=== PATIENT | male | born 1945 | race Hispanic/Latino ===

== ENCOUNTER 2020-05-14 13:28 | Inpatient (IN) | payer MEDICARE ==
[~2020-05-14] VITALS: Ht 170.2 cm; Wt 77.1 kg
[2020-05-14 14:10] LABS: BASOPHILS # (AUTO) 0.1 (0.0-0.1); BASOPHILS % 1.3 % (0.0-1.0); EOSINOPHILS # (AUTO) 0.5 (0.0-0.4); EOSINOPHILS % 8.7 % (0.0-6.0); HEMATOCRIT 33.5 % (38.2-49.6); HEMOGLOBIN 11.3 g/dL (14.0-18.0); LYMPHOCYTES # (AUTO) 0.7 (1.0-3.2); MEAN CORPUSCULAR HGB CONC 33.7 g/dL (31-35); MEAN CORPUSCULAR VOLUME 100.9 fL (81-99); MONOCYTES # (AUTO) 0.7 (0.2-0.8); MONOCYTES % 11.1 % (4.4-11.3); NEUTROPHILS # (AUTO) 4.1 (2.1-6.9); NEUTROPHILS % 67.6 % (38.7-80.0); PLATELET COUNT 117 x10e3/uL (140-360); RED BLOOD COUNT 3.32 x10e6/uL (4.3-5.7); RED CELL DISTRIBUTION WIDTH 14.6 % (11.7-14.4)
[2020-05-14 14:22] LABS: INR 1.7; PARTIAL THROMBOPLASTIN TIME 35.7 seconds (23.8-35.5); PROTHROMBIN TIME 20.8 seconds (11.9-14.5)
[2020-05-14 14:29] LABS: ALANINE AMINOTRANSFERASE 47 IU/L (0-55); ALBUMIN 2.6 g/dL (3.5-5.0); ALBUMIN/GLOBULIN RATIO 0.6 (0.8-2.0); ALKALINE PHOSPHATASE 103 IU/L (40-150); ANION GAP 11.6 mmol/L (8-16); BLOOD UREA NITROGEN 14 mg/dL (7-26); BUN/CREATININE RATIO 13 (6-25); CALCIUM 8.3 mg/dL (8.4-10.2); CARBON DIOXIDE 27 mmol/L (22-29); CHLORIDE 104 mmol/L (98-107); CREATINE KINASE 460 IU/L (30-200); CREATININE, SERUM 1.11 mg/dL (0.72-1.25); EST GLOMERULAR FILTRATION RATE > 60 ML/MIN (60-); GLUCOSE 153 mg/dL (74-118); MAGNESIUM 1.7 MG/DL (1.3-2.1); POTASSIUM 3.6 mmol/L (3.5-5.1); SODIUM 139 mmol/L (136-145)
[2020-05-14 15:03] LABS: B-TYPE NATRIURETIC PEPTIDE2 125.3 pg/mL (0-100)
[2020-05-14] MEDS ORDERED: FUROSEMIDE INJ 10 MG/ML 4 ML VIAL IV ONE (15:30)
[2020-05-14] MEDS ORDERED: ONDANSETRON HCL INJ 2MG/ML 2ML 2 MG/ML VIAL IV STA (15:43)
[2020-05-14] MEDS ORDERED: ONDANSETRON HCL INJ 2MG/ML 2ML 2 MG/ML VIAL IV PRN (15:45)
[2020-05-14] MEDS ORDERED: PHYTONADIONE 10 MG/ML AMP PO STA (15:49)
[2020-05-14] MEDS ORDERED: DEXTROSE 50% SYRINGE 50 ML IV PRN (16:00)
[2020-05-14] MEDS: INSULIN LISPRO 100 UNIT/1 ML 3ML VIAL SQ SCH ×2 (17:50→21:00)
[2020-05-14 19:20] VITALS: BP 116/77
[2020-05-14 20:00] VITALS: BP 167/77
[2020-05-14 20:53] VITALS: BP 116/77
[2020-05-14] MEDS: PANTOPRAZOLE 40 MG 10ML VIAL IV SCH (22:25)
[2020-05-14] MEDS ORDERED: ACETAMINOPHEN 650 MG SUPP PR PRN (22:30)
[2020-05-14 22:56] LABS: CLARITY,URINE CLEAR (CLEAR); COLOR,URINE YELLOW (YELLOW); KETONES,URINE NEGATIVE (NEGATIVE); LEUKOCYTE ESTERASE ,URINE NEGATIVE (NEGATIVE); NITRITE,URINE NEGATIVE (NEGATIVE); PROTEIN,URINE DIPSTICK NEGATIVE (NEGATIVE); URINE UROBILINOGEN 1 mg/dL (0.2 - 1)
[2020-05-14 23:02] LABS: BACTERIA,URINE FEW /HPF; EPITHELIAL CELLS,URINE FEW /LPF; RBC,URINE 0-5 /HPF (0-5); WBC,URINE (MAN) 0-5 /HPF (0-5)
[2020-05-15] VITALS (7 sets, daily range): BP systolic 157–184; BP diastolic 72–83
[2020-05-15 00:43] LABS: CREATINE KINASE MB 7.6 ng/mL (0-5.0)
[2020-05-15] MEDS ORDERED: THIAMINE HCL INJ 100 MG/ML 2ML VIAL IV ONE (03:30)
[2020-05-15] MEDS ORDERED: FUROSEMIDE INJ 10 MG/ML 4 ML VIAL IV ONE (03:30)
[2020-05-15] MEDS ORDERED: PHYTONADIONE 10 MG/ML AMP IV ONE (04:15)
[2020-05-15] MEDS ORDERED: PHYTONADIONE 10MG/ML 20 MG in SODIUM CHLORIDE 0.9% 100 ML IV ONE (04:30)
[2020-05-15] MEDS: INSULIN LISPRO 100 UNIT/1 ML 3ML VIAL SQ SCH ×4 (07:30→21:00)
[2020-05-15] MEDS: PANTOPRAZOLE 40 MG 10ML VIAL IV SCH ×2 (08:54→21:00)
[2020-05-15] MEDS: SPIRONOLACTONE 25 MG TAB PO SCH ×2 (08:55→17:47)
[2020-05-15] MEDS ORDERED: MULTIVITAMINS- 12 INJECTION 10 ML, FOLIC ACID MDV 5 MG, THIAMINE HCL INJ 100 MG in SODI... IV SCH (09:00)
[2020-05-15] MEDS ORDERED: FUROSEMIDE INJ 10 MG/ML 4 ML VIAL IV SCH (09:00)
[2020-05-15] MEDS: FOLIC ACID MDV 1 MG in SODIUM CHLORIDE 0.9% 50ML 50 ML IV SCH ×2 (09:00→17:00)
[2020-05-15] MEDS ORDERED: SPIRONOLACTONE 25 MG TAB PO SCH (09:00)
[2020-05-15 09:10] LABS: BASOPHILS # (AUTO) 0.1 (0.0-0.1); BASOPHILS % 1.5 % (0.0-1.0); EOSINOPHILS # (AUTO) 0.8 (0.0-0.4); EOSINOPHILS % 12.6 % (0.0-6.0); HEMATOCRIT 33.8 % (38.2-49.6); HEMOGLOBIN 11.3 g/dL (14.0-18.0); LYMPHOCYTES % 17.1 % (18.0-39.1); MEAN CORPUSCULAR HEMOGLOBIN 33.6 pg (28-32); MEAN CORPUSCULAR HGB CONC 33.4 g/dL (31-35); MEAN CORPUSCULAR VOLUME 100.6 fL (81-99); MONOCYTES # (AUTO) 0.7 (0.2-0.8); MONOCYTES % 11.6 % (4.4-11.3); NEUTROPHILS # (AUTO) 3.4 (2.1-6.9); PLATELET COUNT 121 x10e3/uL (140-360); RED BLOOD COUNT 3.36 x10e6/uL (4.3-5.7); RED CELL DISTRIBUTION WIDTH 14.6 % (11.7-14.4)
[2020-05-15 09:18] LABS: INR 1.62
[2020-05-15 09:19] LABS: PARTIAL THROMBOPLASTIN TIME 37.1 seconds (23.8-35.5)
[2020-05-15 09:28] LABS: ALANINE AMINOTRANSFERASE 40 IU/L (0-55); ALBUMIN 2.4 g/dL (3.5-5.0); ALBUMIN/GLOBULIN RATIO 0.6 (0.8-2.0); ALKALINE PHOSPHATASE 78 IU/L (40-150); ANION GAP 13.6 mmol/L (8-16); BLOOD UREA NITROGEN 14 mg/dL (7-26); BUN/CREATININE RATIO 13 (6-25); CALCIUM 8.3 mg/dL (8.4-10.2); CARBON DIOXIDE 26 mmol/L (22-29); CHLORIDE 106 mmol/L (98-107); CHOLESTEROL 151 MD/DL (0-199); CREATININE, SERUM 1.08 mg/dL (0.72-1.25); EST GLOMERULAR FILTRATION RATE > 60 ML/MIN (60-); GLUCOSE 90 mg/dL (74-118); HDL CHOLESTEROL 25 MG/DL (40-60); IRON 66 ug/dL (65-175); LDL CHOLESTEROL 111 MG/DL (60-130); MAGNESIUM 1.7 MG/DL (1.3-2.1); PHOSPHORUS 3.1 MG/DL (2.3-4.7); POTASSIUM 3.6 mmol/L (3.5-5.1); SODIUM 142 mmol/L (136-145); TRIGLYCERIDES 77 MG/DL (0-149)
[2020-05-15 09:29] LABS: CREATINE KINASE 242 IU/L (30-200)
[2020-05-15 09:50] LABS: FERRITIN 212.74 ng/mL (21.81-274.66); THYROID STIMULATING HORMONE 5.992 uIU/mL (0.350-4.940)
[2020-05-15] MEDS ORDERED: FOLIC ACID MDV 5 MG, THIAMINE HCL INJ 100 MG in SODIUM CHLORIDE 0.9% 1000ML 1,000 ML IV SCH ×3 (10:45→11:30)
[2020-05-15] MEDS: FUROSEMIDE INJ 10 MG/ML 4 ML VIAL IV SCH ×2 (13:09→17:47)
[2020-05-15 16:57] LABS: CREATINE KINASE MB 5.2 ng/mL (0-5.0)
[2020-05-16] VITALS (8 sets, daily range): BP systolic 140–174; BP diastolic 69–85
[2020-05-16] MEDS: LEVOTHYROXINE SODIUM 25 MCG TABLET PO SCH (05:31)
[2020-05-16] MEDS: FUROSEMIDE INJ 10 MG/ML 4 ML VIAL IV SCH ×4 (05:31→16:50)
[2020-05-16 06:56] LABS: BASOPHILS # (AUTO) 0.1 (0.0-0.1); BASOPHILS % 0.9 % (0.0-1.0); EOSINOPHILS # (AUTO) 0.8 (0.0-0.4); EOSINOPHILS % 13.9 % (0.0-6.0); HEMATOCRIT 29.7 % (38.2-49.6); HEMOGLOBIN 9.9 g/dL (14.0-18.0); LYMPHOCYTES % 16.9 % (18.0-39.1); MEAN CORPUSCULAR HEMOGLOBIN 33.6 pg (28-32); MEAN CORPUSCULAR HGB CONC 33.3 g/dL (31-35); MEAN CORPUSCULAR VOLUME 100.7 fL (81-99); MONOCYTES # (AUTO) 0.9 (0.2-0.8); MONOCYTES % 15.3 % (4.4-11.3); NEUTROPHILS % 52.6 % (38.7-80.0); PLATELET COUNT 94 x10e3/uL (140-360); RED BLOOD COUNT 2.95 x10e6/uL (4.3-5.7); RED CELL DISTRIBUTION WIDTH 14.6 % (11.7-14.4)
[2020-05-16] MEDS: INSULIN LISPRO 100 UNIT/1 ML 3ML VIAL SQ SCH ×4 (07:30→21:00)
[2020-05-16 07:45] LABS: ALBUMIN 2.2 g/dL (3.5-5.0); ALBUMIN/GLOBULIN RATIO 0.6 (0.8-2.0); ANION GAP 12.5 mmol/L (8-16); CALCIUM 8.2 mg/dL (8.4-10.2); CREATININE, SERUM 1.4 mg/dL (0.72-1.25); MAGNESIUM 1.6 MG/DL (1.3-2.1); POTASSIUM 3.5 mmol/L (3.5-5.1)
[2020-05-16] MEDS: SPIRONOLACTONE 25 MG TAB PO SCH ×2 (08:49→16:49)
[2020-05-16] MEDS: PANTOPRAZOLE 40 MG 10ML VIAL IV SCH ×2 (08:49→21:00)
[2020-05-16] MEDS: FOLIC ACID MDV 1 MG in SODIUM CHLORIDE 0.9% 50ML 50 ML IV SCH (11:00)
[2020-05-16] MEDS: HYDRALAZINE HCL 20 MG/ML VIAL IV PRN (23:20)
[2020-05-17] VITALS (8 sets, daily range): BP systolic 132–161; BP diastolic 52–82
[2020-05-17] MEDS: FUROSEMIDE INJ 10 MG/ML 4 ML VIAL IV SCH ×5 (00:48→23:24)
[2020-05-17] MEDS: LEVOTHYROXINE SODIUM 25 MCG TABLET PO SCH (05:55)
[2020-05-17 06:28] LABS: BASOPHILS # (AUTO) 0.1 (0.0-0.1); BASOPHILS % 1.1 % (0.0-1.0); EOSINOPHILS # (AUTO) 0.7 (0.0-0.4); EOSINOPHILS % 10.7 % (0.0-6.0); HEMATOCRIT 33.2 % (38.2-49.6); HEMOGLOBIN 11.2 g/dL (14.0-18.0); LYMPHOCYTES # (AUTO) 0.7 (1.0-3.2); LYMPHOCYTES % 10.9 % (18.0-39.1); MEAN CORPUSCULAR HEMOGLOBIN 33.7 pg (28-32); MEAN CORPUSCULAR HGB CONC 33.7 g/dL (31-35); MONOCYTES # (AUTO) 0.9 (0.2-0.8); MONOCYTES % 13.9 % (4.4-11.3); NEUTROPHILS % 63.1 % (38.7-80.0); PLATELET COUNT 100 x10e3/uL (140-360); RED BLOOD COUNT 3.32 x10e6/uL (4.3-5.7); RED CELL DISTRIBUTION WIDTH 14.6 % (11.7-14.4)
[2020-05-17 06:53] LABS: ALBUMIN 2.4 g/dL (3.5-5.0); ALBUMIN/GLOBULIN RATIO 0.6 (0.8-2.0); ANION GAP 11.3 mmol/L (8-16); CALCIUM 8.4 mg/dL (8.4-10.2); CREATININE, SERUM 1.52 mg/dL (0.72-1.25); POTASSIUM 3.3 mmol/L (3.5-5.1)
[2020-05-17 07:11] LABS: INR 1.76; PROTHROMBIN TIME 21.4 seconds (11.9-14.5)
[2020-05-17 07:15] LABS: % IRON SATURATION 25 % (15-50); IRON 41 ug/dL (65-175); TOTAL IRON BINDING CAPACITY 162 ug/dL (261-478); TRANSFERRIN 116 mg/dL (174-364)
[2020-05-17] MEDS: INSULIN LISPRO 100 UNIT/1 ML 3ML VIAL SQ SCH ×4 (07:30→21:00)
[2020-05-17] MEDS ORDERED: ALBUMIN 25% 12.5GM 50ML 100 ML IV ONE (09:27)
[2020-05-17] MEDS: FOLIC ACID MDV 1 MG in SODIUM CHLORIDE 0.9% 50ML 50 ML IV SCH (10:20)
[2020-05-17] MEDS: PANTOPRAZOLE 40 MG 10ML VIAL IV SCH ×2 (10:20→21:00)
[2020-05-17] MEDS ORDERED: POTASSIUM CHLORIDE 10MEQ EA PO ONE (11:00)
[2020-05-17] MEDS: SPIRONOLACTONE 25 MG TAB PO SCH ×2 (11:09→17:01)
[2020-05-17] MEDS: HYDRALAZINE HCL 20 MG/ML VIAL IV PRN (11:20)
[2020-05-17 11:47] LABS: BODY FLUID TYPE PERITONEAL
[2020-05-17 11:48] LABS: BODY FLUID APPEARANCE SL.CLOUDY; RBC,BODY FLUID 88 cells/uL; WBC,BODY FLUID 154 cells/uL
[2020-05-17 11:52] LABS: BODY FLUID COLOR YELLOW
[2020-05-17 12:06] LABS: LYMPHOCYTES,BODY FLUID 15 %; MONO/MACROPHG,BODY FLUID 76 %; NEUTROPHILS,BODY FLUID 8 %
[2020-05-17 12:08] LABS: OTHER CELLS,BODY FLUID 1 %
[2020-05-18] VITALS (8 sets, daily range): BP systolic 156–167; BP diastolic 62–78
[2020-05-18] MEDS ORDERED: LACTULOSE SYRUP 20 GM/30 ML UDC PO PRN (01:30)
[2020-05-18] MEDS: LACTULOSE SYRUP 20 GM/30 ML UDC PO SCH ×4 (01:41→20:10)
[2020-05-18] MEDS: RIFAXIMIN 550 MG TABLET PO SCH ×3 (01:42→17:22)
[2020-05-18] MEDS: LEVOTHYROXINE SODIUM 25 MCG TABLET PO SCH (04:56)
[2020-05-18 05:21] LABS: BASOPHILS # (AUTO) 0.1 (0.0-0.1); BASOPHILS % 0.8 % (0.0-1.0); EOSINOPHILS # (AUTO) 0.4 (0.0-0.4); EOSINOPHILS % 5.8 % (0.0-6.0); HEMOGLOBIN 10.9 g/dL (14.0-18.0); LYMPHOCYTES # (AUTO) 0.6 (1.0-3.2); LYMPHOCYTES % 9.7 % (18.0-39.1); MEAN CORPUSCULAR HEMOGLOBIN 33.5 pg (28-32); MEAN CORPUSCULAR HGB CONC 34.1 g/dL (31-35); MEAN CORPUSCULAR VOLUME 98.5 fL (81-99); MONOCYTES # (AUTO) 0.9 (0.2-0.8); MONOCYTES % 13.1 % (4.4-11.3); NEUTROPHILS # (AUTO) 4.6 (2.1-6.9); NEUTROPHILS % 70.1 % (38.7-80.0); PLATELET COUNT 90 x10e3/uL (140-360); RED BLOOD COUNT 3.25 x10e6/uL (4.3-5.7); RED CELL DISTRIBUTION WIDTH 14.6 % (11.7-14.4)
[2020-05-18 05:28] LABS: INR 1.87; PROTHROMBIN TIME 22.4 seconds (11.9-14.5)
[2020-05-18 05:34] LABS: ANION GAP 14.2 mmol/L (8-16); CALCIUM 8.6 mg/dL (8.4-10.2); CREATININE, SERUM 1.35 mg/dL (0.72-1.25); POTASSIUM 3.2 mmol/L (3.5-5.1)
[2020-05-18] MEDS: INSULIN LISPRO 100 UNIT/1 ML 3ML VIAL SQ SCH ×4 (07:30→20:38)
[2020-05-18] MEDS ORDERED: FUROSEMIDE 40 MG TAB PO SCH (09:00)
[2020-05-18] MEDS ORDERED: FUROSEMIDE INJ 10 MG/ML 4 ML VIAL IV SCH (09:00)
[2020-05-18] MEDS: IRON SUCROSE 100 MG in SODIUM CHLORIDE 0.9% 100 ML 100 ML IV SCH (09:18)
[2020-05-18] MEDS: SPIRONOLACTONE 25 MG TAB PO SCH ×2 (09:19→17:22)
[2020-05-18] MEDS: FOLIC ACID MDV 1 MG in SODIUM CHLORIDE 0.9% 50ML 50 ML IV SCH (10:00)
[2020-05-18] MEDS ORDERED: POTASSIUM CHLORIDE 20MEQ/100ML 100 ML IV ONE (13:00)
[2020-05-18] MEDS ORDERED: SODIUM CHLORIDE 0.9% 250ML 250 ML ONE (13:19)
[2020-05-19] VITALS (8 sets, daily range): BP systolic 136–166; BP diastolic 64–81
[2020-05-19 03:51] LABS: BASOPHILS # (AUTO) 0.1 (0.0-0.1); BASOPHILS % 0.9 % (0.0-1.0); EOSINOPHILS # (AUTO) 0.6 (0.0-0.4); EOSINOPHILS % 8.9 % (0.0-6.0); HEMATOCRIT 32.4 % (38.2-49.6); HEMOGLOBIN 10.9 g/dL (14.0-18.0); LYMPHOCYTES # (AUTO) 0.9 (1.0-3.2); LYMPHOCYTES % 12.9 % (18.0-39.1); MEAN CORPUSCULAR HEMOGLOBIN 33.7 pg (28-32); MEAN CORPUSCULAR HGB CONC 33.6 g/dL (31-35); MEAN CORPUSCULAR VOLUME 100.3 fL (81-99); MONOCYTES # (AUTO) 0.8 (0.2-0.8); MONOCYTES % 11.8 % (4.4-11.3); NEUTROPHILS # (AUTO) 4.5 (2.1-6.9); NEUTROPHILS % 65.1 % (38.7-80.0); PLATELET COUNT 84 x10e3/uL (140-360); RED BLOOD COUNT 3.23 x10e6/uL (4.3-5.7); RED CELL DISTRIBUTION WIDTH 14.9 % (11.7-14.4)
[2020-05-19 04:12] LABS: ALBUMIN 2.4 g/dL (3.5-5.0); ALBUMIN/GLOBULIN RATIO 0.6 (0.8-2.0); CALCIUM 8.5 mg/dL (8.4-10.2); CREATININE, SERUM 1.28 mg/dL (0.72-1.25)
[2020-05-19] MEDS: LACTULOSE SYRUP 20 GM/30 ML UDC PO PRN ×2 (04:15→05:13)
[2020-05-19] MEDS ORDERED: LACTULOSE SYRUP 20 GM/30 ML UDC PO ONE (04:15)
[2020-05-19] MEDS: LEVOTHYROXINE SODIUM 25 MCG TABLET PO SCH (05:13)
[2020-05-19 06:04] LABS: INR 1.85; PROTHROMBIN TIME 22.2 seconds (11.9-14.5)
[2020-05-19] MEDS ORDERED: POTASSIUM CHLORIDE 10MEQ EA PO ONE (07:10)
[2020-05-19] MEDS: INSULIN LISPRO 100 UNIT/1 ML 3ML VIAL SQ SCH ×4 (07:30→21:00)
[2020-05-19] MEDS: LACTULOSE SYRUP 20 GM/30 ML UDC PO SCH ×3 (09:00→21:00)
[2020-05-19] MEDS: RIFAXIMIN 550 MG TABLET PO SCH ×2 (09:44→17:41)
[2020-05-19] MEDS: TAMSULOSIN HCL 0.4 MG CAP PO SCH (09:44)
[2020-05-19] MEDS: FUROSEMIDE 40 MG TAB PO SCH (09:44)
[2020-05-19] MEDS: SPIRONOLACTONE 25 MG TAB PO SCH ×2 (09:44→17:41)
[2020-05-19] MEDS: FOLIC ACID MDV 1 MG in SODIUM CHLORIDE 0.9% 50ML 50 ML IV SCH (11:01)
[2020-05-19] MEDS: IRON SUCROSE 100 MG in SODIUM CHLORIDE 0.9% 100 ML 100 ML IV SCH (11:22)
[2020-05-20] VITALS: BP 145/70
[2020-05-20 04:00] VITALS: BP 130/68
[2020-05-20] MEDS: LEVOTHYROXINE SODIUM 25 MCG TABLET PO SCH (06:00)
[2020-05-20 06:12] LABS: BASOPHILS # (AUTO) 0.1 (0.0-0.1); BASOPHILS % 0.9 % (0.0-1.0); EOSINOPHILS # (AUTO) 0.7 (0.0-0.4); EOSINOPHILS % 12.6 % (0.0-6.0); HEMATOCRIT 28.6 % (38.2-49.6); HEMOGLOBIN 9.6 g/dL (14.0-18.0); LYMPHOCYTES % 16.2 % (18.0-39.1); MEAN CORPUSCULAR HEMOGLOBIN 33.9 pg (28-32); MEAN CORPUSCULAR HGB CONC 33.6 g/dL (31-35); MEAN CORPUSCULAR VOLUME 101.1 fL (81-99); MONOCYTES # (AUTO) 0.7 (0.2-0.8); MONOCYTES % 12.6 % (4.4-11.3); NEUTROPHILS # (AUTO) 3.4 (2.1-6.9); NEUTROPHILS % 57.4 % (38.7-80.0); PLATELET COUNT 70 x10e3/uL (140-360); RED BLOOD COUNT 2.83 x10e6/uL (4.3-5.7); RED CELL DISTRIBUTION WIDTH 14.8 % (11.7-14.4)
[2020-05-20 06:41] LABS: ANION GAP 10.3 mmol/L (8-16); BLOOD UREA NITROGEN 18 mg/dL (7-26); BUN/CREATININE RATIO 16 (6-25); CALCIUM 8.1 mg/dL (8.4-10.2); CARBON DIOXIDE 29 mmol/L (22-29); CHLORIDE 106 mmol/L (98-107); CREATININE, SERUM 1.16 mg/dL (0.72-1.25); EST GLOMERULAR FILTRATION RATE > 60 ML/MIN (60-); GLUCOSE 115 mg/dL (74-118); MAGNESIUM 1.5 MG/DL (1.3-2.1); POTASSIUM 3.3 mmol/L (3.5-5.1); SODIUM 142 mmol/L (136-145)
[2020-05-20] MEDS: INSULIN LISPRO 100 UNIT/1 ML 3ML VIAL SQ SCH ×3 (07:30→17:26)
[2020-05-20 07:48] VITALS: BP 149/68
[2020-05-20 08:02] VITALS: BP 149/68
[2020-05-20] MEDS: IRON SUCROSE 100 MG in SODIUM CHLORIDE 0.9% 100 ML 100 ML IV SCH (10:20)
[2020-05-20] MEDS: SPIRONOLACTONE 25 MG TAB PO SCH ×2 (10:21→17:17)
[2020-05-20] MEDS: LACTULOSE SYRUP 20 GM/30 ML UDC PO SCH ×2 (10:21→17:17)
[2020-05-20] MEDS: TAMSULOSIN HCL 0.4 MG CAP PO SCH (10:22)
[2020-05-20] MEDS: FUROSEMIDE 40 MG TAB PO SCH (10:22)
[2020-05-20] MEDS: RIFAXIMIN 550 MG TABLET PO SCH ×2 (10:22→17:17)
[2020-05-20 11:39] VITALS: BP 156/70
[2020-05-20] MEDS: FOLIC ACID MDV 1 MG in SODIUM CHLORIDE 0.9% 50ML 50 ML IV SCH (11:56)
[2020-05-20 16:02] VITALS: BP 149/77
== END 2020-05-20 17:35 | DRG 432 ==
LOC: ER 13:35 → ERHOLD 16:13 → MED/SURG3 19:17
PROVIDERS: ADMIT Internal Medicine; ATTEND Internal Medicine
PROC: 0W9G3ZZ Drainage of Peritoneal Cavity, Percutaneous Approach (ICD-10-PCS; principal; 2020-05-17)
DX: K70.31 Alcoholic cirrhosis of liver with ascites (principal); K72.00 Acute and subacute hepatic failure without coma; D68.9 Coagulation defect, unspecified; N17.9 Acute kidney failure, unspecified; N13.30 Unspecified hydronephrosis; D69.59 Other secondary thrombocytopenia; E11.65 Type 2 diabetes mellitus with hyperglycemia; I16.0 Hypertensive urgency; I10 Essential (primary) hypertension; Z87.891 Personal history of nicotine dependence; F10.21 Alcohol dependence, in remission; D64.9 Anemia, unspecified; E03.9 Hypothyroidism, unspecified; E87.6 Hypokalemia; R33.9 Retention of urine, unspecified; K72.90 Hepatic failure, unspecified without coma
CPT/HCPCS: 36415; 49083; 71045; 74176; 74470; 76705; 80048; 80053; 80061; 81001; 82105; 82140; 82550; 82553; 82607; 82728; 82746; 82948; 83036; 83540; 83735; 83880; 84100; 84443; 84466; 84484; 85025; 85045; 85610; 85730; 86850; 86900; 87070; 87086; 87205; 89051; 93005; 96372; 97139; 99284; C1729; J0360; J1756; J1940; J2405; J3411; J3430; J3480; J7030; J7050; U0002

== ENCOUNTER 2020-06-14 18:36 | Emergency (ER) | payer MEDICARE ==
[~2020-06-14] VITALS: Ht 170.2 cm; Wt 77.1 kg
[2020-06-14 19:25] LABS: BASOPHILS % 0.2 % (0.0-1.0); EOSINOPHILS # (AUTO) 0.2 (0.0-0.4); EOSINOPHILS % 1.3 % (0.0-6.0); HEMATOCRIT 32.8 % (38.2-49.6); LYMPHOCYTES % 7.6 % (18.0-39.1); MEAN CORPUSCULAR HEMOGLOBIN 33.7 pg (28-32); MEAN CORPUSCULAR HGB CONC 33.5 g/dL (31-35); MEAN CORPUSCULAR VOLUME 100.6 fL (81-99); MONOCYTES % 8.1 % (4.4-11.3); NEUTROPHILS # (AUTO) 10.3 (2.1-6.9); NEUTROPHILS % 81.5 % (38.7-80.0); PLATELET COUNT 77 x10e3/uL (140-360); RED BLOOD COUNT 3.26 x10e6/uL (4.3-5.7); RED CELL DISTRIBUTION WIDTH 15.6 % (11.7-14.4)
[2020-06-14 19:38] LABS: CLARITY,URINE CLOUDY (CLEAR); COLOR,URINE BROWN (YELLOW); KETONES,URINE NEGATIVE (NEGATIVE); LEUKOCYTE ESTERASE ,URINE SMALL (NEGATIVE); NITRITE,URINE NEGATIVE (NEGATIVE); PROTEIN,URINE DIPSTICK 2+ (NEGATIVE); URINE UROBILINOGEN 4 mg/dL (0.2 - 1)
[2020-06-14 19:44] LABS: ALBUMIN/GLOBULIN RATIO 0.4 (0.8-2.0); ANION GAP 14.2 mmol/L (8-16); CALCIUM 8.4 mg/dL (8.4-10.2); CREATININE, SERUM 1.24 mg/dL (0.72-1.25); POTASSIUM 4.2 mmol/L (3.5-5.1)
[2020-06-14 19:51] LABS: CREATINE KINASE MB 1.4 ng/mL (0-5.0)
[2020-06-14 19:55] LABS: AMORPHOUS SEDIMENT,URINE MODERATE (FEW); BACTERIA,URINE MANY /HPF; EPITHELIAL CELLS,URINE RARE /LPF; RENAL EPITHELIAL CELLS,URINE RARE
[2020-06-14] MEDS ORDERED: CEFTRIAXONE SOD 1 GM/NS 50 ML 50 ML IV ONE (21:00)
[2020-06-14] MEDS ORDERED: ACETAMINOPHEN 325 MG TAB PO ONE (22:15)
[2020-06-16] MEDS ORDERED: LACTULOSE20 GM/30 M PO (02:13)
[2020-06-16] MEDS ORDERED: FLOMAX0.4 MG PO (02:13)
[2020-06-16] MEDS ORDERED: NEOMYCIN SULFA500 MG PO ×2 (02:13)
[2020-06-16] MEDS ORDERED: IPRAT-ALBUT 0.5-3 ML IH (02:13)
[2020-06-16] MEDS ORDERED: SPIRONOLACTONE25 MG PO (02:13)
[2020-06-16] MEDS ORDERED: FUROSEMIDE40 MG PO (02:13)
[2020-06-16] MEDS ORDERED: LEVOTHYROXINE50 MCG PO (02:13)
[2020-06-16] MEDS ORDERED: INSULIN ASPART (02:24)
== END 2020-06-15 02:16 ==
LOC: ER 18:42
DX: R18.8 Other ascites (principal); K74.60 Unspecified cirrhosis of liver; N39.0 Urinary tract infection, site not specified; I10 Essential (primary) hypertension; E11.9 Type 2 diabetes mellitus without complications; R94.31 Abnormal electrocardiogram [ECG] [EKG]
CPT/HCPCS: 36415; 70450; 71045; 80053; 81001; 82140; 82550; 82553; 84484; 85025; 93005; 99284

== ENCOUNTER 2020-06-15 06:43 | Inpatient (IN) | payer MEDICARE ==
[~2020-06-15] VITALS: Ht 170.2 cm; Wt 76.3 kg
[2020-06-15] MEDS ORDERED: CEFEPIME HCL 1 GM VIAL IV SCH (07:00)
[2020-06-15] MEDS ORDERED: LACTATED RINGER'S 1,000 ML INJ ONE (07:00)
[2020-06-15 07:14] LABS: BASOPHILS # (AUTO) 0.1 (0.0-0.1); BASOPHILS % 0.3 % (0.0-1.0); EOSINOPHILS % 0.1 % (0.0-6.0); HEMATOCRIT 27.2 % (38.2-49.6); HEMOGLOBIN 9.3 g/dL (14.0-18.0); LYMPHOCYTES # (AUTO) 0.3 (1.0-3.2); LYMPHOCYTES % 1.8 % (18.0-39.1); MEAN CORPUSCULAR HEMOGLOBIN 34.3 pg (28-32); MEAN CORPUSCULAR HGB CONC 34.2 g/dL (31-35); MEAN CORPUSCULAR VOLUME 100.4 fL (81-99); MONOCYTES % 5.4 % (4.4-11.3); NEUTROPHILS # (AUTO) 16.9 (2.1-6.9); NEUTROPHILS % 92.2 % (38.7-80.0); RED BLOOD COUNT 2.71 x10e6/uL (4.3-5.7); RED CELL DISTRIBUTION WIDTH 15.8 % (11.7-14.4)
[2020-06-15 07:17] LABS: PLATELET COUNT 45 x10e3/uL (140-360)
[2020-06-15 07:45] LABS: ALBUMIN 1.8 g/dL (3.5-5.0); ALBUMIN/GLOBULIN RATIO 0.5 (0.8-2.0); ANION GAP 14.7 mmol/L (8-16); CALCIUM 7.8 mg/dL (8.4-10.2); CREATININE, SERUM 1.67 mg/dL (0.72-1.25); POTASSIUM 3.7 mmol/L (3.5-5.1)
[2020-06-15] MEDS ORDERED: CEFEPIME 1GM/NS 0.9% 50 ML 50 ML IV ONE (07:47)
[2020-06-15 07:51] LABS: CREATINE KINASE MB 0.8 ng/mL (0-5.0)
[2020-06-15 08:28] LABS: CLARITY,URINE CLOUDY (CLEAR); COLOR,URINE BROWN (YELLOW); LEUKOCYTE ESTERASE ,URINE LARGE (NEGATIVE); NITRITE,URINE NEGATIVE (NEGATIVE); PROTEIN,URINE DIPSTICK >=300 (NEGATIVE)
[2020-06-15 08:29] LABS: KETONES,URINE TRACE (NEGATIVE)
[2020-06-15] MEDS ORDERED: VANCOMYCIN 500MG/NS 0.9% 100ML 100 ML IV SCH (08:30)
[2020-06-15] MEDS: SODIUM CHLORIDE 0.9% 1000ML 1,000 ML IV SCH ×2 (08:48→17:03)
[2020-06-15 09:07] LABS: BACTERIA,URINE MANY /HPF; RBC,URINE >50 /HPF (0-5); WBC,URINE (MAN) 21-50 /HPF (0-5)
[2020-06-15 09:08] LABS: EPITHELIAL CELLS,URINE FEW /LPF
[2020-06-15 09:09] LABS: TRIPLE PHOSPHATE CRYSTAL,UR FEW (FEW)
[2020-06-15 09:27] LABS: BODY FLUID APPEARANCE CLEAR; BODY FLUID COLOR YELLOW; BODY FLUID TYPE PERITONEAL; RBC,BODY FLUID 286 cells/uL; WBC,BODY FLUID 33 cells/uL
[2020-06-15 09:57] LABS: INR 2.09; PARTIAL THROMBOPLASTIN TIME 38.3 seconds (23.8-35.5); PROTHROMBIN TIME 25.1 seconds (11.9-14.5)
[2020-06-15] MEDS ORDERED: PIPER-TAZ 3.375 GM 50 ML IV SCH (10:00)
[2020-06-15 10:40] LABS: LYMPHOCYTES,BODY FLUID 20 %; MONO/MACROPHG,BODY FLUID 20 %; NEUTROPHILS,BODY FLUID 8 %; OTHER CELLS,BODY FLUID 52 %
[2020-06-15] MEDS: MEROPENEM 1GM 100 ML IV SCH (11:45)
[2020-06-15 11:49] LABS: BAND NEUTROPHILS % (MANUAL) 3 %; LYMPHOCYTES % (MANUAL) 1 % (19-48); METAMYELOCYTES % (MANUAL) 1 % (0-0); MONOCYTES % (MANUAL) 1 % (3.4-9.0); NEUTROPHILS % (MANUAL) 94 % (40-74)
[2020-06-15 11:52] LABS: TEAR DROP CELLS FEW
[2020-06-15 11:53] LABS: HELMET CELLS RARE
[2020-06-15 11:54] LABS: ANISOCYTOSIS SLIGHT; PLATELET ESTIMATE MARKEDLY DECREASED; PLATELET MORPHOLOGY COMMENT NORMAL; RBC MORPHOLOGY COMMENT NORMAL
[2020-06-15] MEDS: FAMOTIDINE 20 MG TAB PO SCH (16:30)
[2020-06-15] MEDS ORDERED: CEFEPIME 1GM/NS 0.9% 50 ML 50 ML IV SCH (19:45)
[2020-06-15 21:43] VITALS: BP 134/63
[2020-06-15] MEDS: LACTULOSE SYRUP 20 GM/30 ML UDC PO SCH (23:00)
[2020-06-15 23:31] VITALS: BP 134/63
[2020-06-16] VITALS (9 sets, daily range): BP systolic 131–142; BP diastolic 56–78
[2020-06-16] MEDS: MEROPENEM 1GM 100 ML IV SCH ×3 (00:06→23:47)
[2020-06-16] MEDS ORDERED: LEVOTHYROXINE50 MCG PO (02:13)
[2020-06-16] MEDS ORDERED: LACTULOSE20 GM/30 M PO (02:13)
[2020-06-16] MEDS ORDERED: SPIRONOLACTONE25 MG PO (02:13)
[2020-06-16] MEDS ORDERED: FUROSEMIDE40 MG PO (02:13)
[2020-06-16] MEDS ORDERED: IPRAT-ALBUT 0.5-3 ML IH (02:13)
[2020-06-16] MEDS ORDERED: NEOMYCIN SULFA500 MG PO ×2 (02:13)
[2020-06-16] MEDS ORDERED: FLOMAX0.4 MG PO (02:13)
[2020-06-16] MEDS ORDERED: INSULIN ASPART (02:24)
[2020-06-16] MEDS: SODIUM CHLORIDE 0.9% 1000ML 1,000 ML IV SCH ×2 (05:12→14:56)
[2020-06-16 06:12] LABS: BASOPHILS # (AUTO) 0.1 (0.0-0.1); BASOPHILS % 0.4 % (0.0-1.0); EOSINOPHILS # (AUTO) 0.2 (0.0-0.4); EOSINOPHILS % 0.8 % (0.0-6.0); HEMATOCRIT 28.9 % (38.2-49.6); HEMOGLOBIN 9.8 g/dL (14.0-18.0); LYMPHOCYTES # (AUTO) 1.4 (1.0-3.2); LYMPHOCYTES % 6.1 % (18.0-39.1); MEAN CORPUSCULAR HEMOGLOBIN 33.9 pg (28-32); MEAN CORPUSCULAR HGB CONC 33.9 g/dL (31-35); MONOCYTES # (AUTO) 1.6 (0.2-0.8); MONOCYTES % 6.9 % (4.4-11.3); NEUTROPHILS # (AUTO) 19.1 (2.1-6.9); NEUTROPHILS % 84.3 % (38.7-80.0); RED BLOOD COUNT 2.89 x10e6/uL (4.3-5.7); RED CELL DISTRIBUTION WIDTH 15.9 % (11.7-14.4)
[2020-06-16 06:17] LABS: PLATELET COUNT 55 x10e3/uL (140-360)
[2020-06-16 06:23] LABS: INR 2.17; PROTHROMBIN TIME 25.9 seconds (11.9-14.5)
[2020-06-16 06:25] LABS: PARTIAL THROMBOPLASTIN TIME 39.6 seconds (23.8-35.5)
[2020-06-16 06:51] LABS: ALBUMIN 1.8 g/dL (3.5-5.0); ALBUMIN/GLOBULIN RATIO 0.5 (0.8-2.0); ANION GAP 14.8 mmol/L (8-16); CALCIUM 7.4 mg/dL (8.4-10.2); CREATININE, SERUM 1.6 mg/dL (0.72-1.25); POTASSIUM 3.8 mmol/L (3.5-5.1)
[2020-06-16] MEDS: LACTULOSE SYRUP 20 GM/30 ML UDC PO SCH ×3 (06:54→22:00)
[2020-06-16] MEDS ORDERED: VANCOMYCIN 1GM/NS 250 ML 250 ML IV SCH ×2 (07:00→07:30)
[2020-06-16] MEDS: FAMOTIDINE 20 MG TAB PO SCH ×2 (07:48→17:16)
[2020-06-16 08:31] LABS: BAND NEUTROPHILS % (MANUAL) 2 %; LYMPHOCYTES % (MANUAL) 1 % (19-48); METAMYELOCYTES % (MANUAL) 2 % (0-0); MONOCYTES % (MANUAL) 2 % (3.4-9.0); MYELOCYTES % (MANUAL) 1 % (0-0); NEUTROPHILS % (MANUAL) 92 % (40-74); PLATELET MORPHOLOGY COMMENT NORMAL; RBC MORPHOLOGY COMMENT NORMAL
[2020-06-16 08:32] LABS: ANISOCYTOSIS SLIGHT; PLATELET ESTIMATE MARKEDLY DECREASED
[2020-06-16 08:33] LABS: MICROCYTOSIS SLIGHT; STOMATOCYTES SLIGHT; TEAR DROP CELLS FEW
[2020-06-16] MEDS: LEVOTHYROXINE SODIUM 25 MCG TABLET PO SCH (10:07)
[2020-06-16] MEDS ORDERED: CEFAZOLIN SOD 1 GM/NS 50ML 50 ML IV SCH (16:45)
[2020-06-16] MEDS: DAPTOMYCIN 500mg 10ML 400 MG in SODIUM CHLORIDE 0.9% 100 ML IV SCH (17:16)
[2020-06-16] MEDS: SODIUM BICARBONATE 8.4% SYRING 100 ML in DEXTROSE 5% 1,000 ML IV SCH (18:09)
[2020-06-16 20:33] LABS: CREATININE,URINE RANDOM 60.34 mg/dL (63-166)
[2020-06-17] VITALS (8 sets, daily range): BP systolic 124–181; BP diastolic 59–100
[2020-06-17] MEDS: SODIUM BICARBONATE 8.4% SYRING 100 ML in DEXTROSE 5% 1,000 ML IV SCH ×3 (03:27→15:00)
[2020-06-17] MEDS: LACTULOSE SYRUP 20 GM/30 ML UDC PO SCH ×3 (05:19→22:33)
[2020-06-17] MEDS: LEVOTHYROXINE SODIUM 25 MCG TABLET PO SCH (05:20)
[2020-06-17 06:07] LABS: BASOPHILS % 0.2 % (0.0-1.0); EOSINOPHILS # (AUTO) 0.4 (0.0-0.4); EOSINOPHILS % 2.8 % (0.0-6.0); HEMATOCRIT 29.3 % (38.2-49.6); HEMOGLOBIN 10.1 g/dL (14.0-18.0); LYMPHOCYTES # (AUTO) 1.4 (1.0-3.2); LYMPHOCYTES % 10.5 % (18.0-39.1); MEAN CORPUSCULAR HEMOGLOBIN 34.4 pg (28-32); MEAN CORPUSCULAR HGB CONC 34.5 g/dL (31-35); MEAN CORPUSCULAR VOLUME 99.7 fL (81-99); MONOCYTES # (AUTO) 1.1 (0.2-0.8); MONOCYTES % 8.1 % (4.4-11.3); NEUTROPHILS # (AUTO) 9.8 (2.1-6.9); NEUTROPHILS % 75.6 % (38.7-80.0); RED BLOOD COUNT 2.94 x10e6/uL (4.3-5.7); RED CELL DISTRIBUTION WIDTH 15.8 % (11.7-14.4)
[2020-06-17 06:17] LABS: PLATELET COUNT 48 x10e3/uL (140-360)
[2020-06-17 06:52] LABS: ALANINE AMINOTRANSFERASE 35 IU/L (0-55); ALBUMIN 1.9 g/dL (3.5-5.0); ALBUMIN/GLOBULIN RATIO 0.5 (0.8-2.0); ALKALINE PHOSPHATASE 76 IU/L (40-150); ANION GAP 12.3 mmol/L (8-16); BLOOD UREA NITROGEN 58 mg/dL (7-26); BUN/CREATININE RATIO 50 (6-25); CALCIUM 7.7 mg/dL (8.4-10.2); CARBON DIOXIDE 23 mmol/L (22-29); CHLORIDE 116 mmol/L (98-107); CREATININE, SERUM 1.17 mg/dL (0.72-1.25); EST GLOMERULAR FILTRATION RATE > 60 ML/MIN (60-); GLUCOSE 189 mg/dL (74-118); POTASSIUM 3.3 mmol/L (3.5-5.1); SODIUM 148 mmol/L (136-145)
[2020-06-17] MEDS: FAMOTIDINE 20 MG TAB PO SCH ×2 (07:30→17:10)
[2020-06-17] MEDS: BALSAM PERU/CASTOR OIL 60 GM OINT...G. TP SCH (08:21)
[2020-06-17] MEDS: MEROPENEM 1GM 100 ML IV SCH (11:07)
[2020-06-17] MEDS ORDERED: POTASSIUM CHLORIDE 20MEQ/100ML 200 ML IV ONE ×2 (16:30→18:00)
[2020-06-17] MEDS: DAPTOMYCIN 500mg 10ML 400 MG in SODIUM CHLORIDE 0.9% 100 ML IV SCH (17:10)
[2020-06-17] MEDS ORDERED: PIPER-TAZ 3.375 GM 50 ML IV SCH (18:00)
[2020-06-17] MEDS: PIPER-TAZ 3.375 GM 50 ML IV SCH (22:33)
[2020-06-18] VITALS (8 sets, daily range): BP systolic 116–179; BP diastolic 69–84
[2020-06-18] MEDS: SODIUM BICARBONATE 8.4% SYRING 100 ML in DEXTROSE 5% 1,000 ML IV SCH ×2 (00:09→09:41)
[2020-06-18] MEDS: PIPER-TAZ 3.375 GM 50 ML IV SCH ×4 (03:28→22:00)
[2020-06-18] MEDS: LACTULOSE SYRUP 20 GM/30 ML UDC PO SCH ×3 (05:12→22:00)
[2020-06-18] MEDS: LEVOTHYROXINE SODIUM 25 MCG TABLET PO SCH (05:12)
[2020-06-18 06:09] LABS: ALANINE AMINOTRANSFERASE 41 IU/L (0-55); ALBUMIN 1.8 g/dL (3.5-5.0); ALBUMIN/GLOBULIN RATIO 0.4 (0.8-2.0); ALKALINE PHOSPHATASE 77 IU/L (40-150); ANION GAP 12.5 mmol/L (8-16); BLOOD UREA NITROGEN 41 mg/dL (7-26); BUN/CREATININE RATIO 49 (6-25); CALCIUM 7.7 mg/dL (8.4-10.2); CARBON DIOXIDE 24 mmol/L (22-29); CHLORIDE 119 mmol/L (98-107); CREATININE, SERUM 0.84 mg/dL (0.72-1.25); EST GLOMERULAR FILTRATION RATE > 60 ML/MIN (60-); GLUCOSE 140 mg/dL (74-118); POTASSIUM 3.5 mmol/L (3.5-5.1); SODIUM 152 mmol/L (136-145)
[2020-06-18 06:38] LABS: MAGNESIUM 2.1 MG/DL (1.3-2.1); PHOSPHORUS 2.1 MG/DL (2.3-4.7)
[2020-06-18] MEDS: FAMOTIDINE 20 MG TAB PO SCH ×2 (07:30→16:47)
[2020-06-18] MEDS: BALSAM PERU/CASTOR OIL 60 GM OINT...G. TP SCH (10:03)
[2020-06-18] MEDS ORDERED: DEXTROSE 5% 500ML 500 ML IV ONE (16:30)
[2020-06-18] MEDS ORDERED: POTASSIUM CHLORIDE 20 MEQ TAB CR PO ONE (17:00)
[2020-06-18] MEDS: DEXTROSE 5% 1,000 ML IV SCH ×2 (19:46→23:39)
[2020-06-19] VITALS (7 sets, daily range): BP systolic 143–162; BP diastolic 72–80
[2020-06-19] MEDS: PIPER-TAZ 3.375 GM 50 ML IV SCH ×4 (03:25→21:49)
[2020-06-19] MEDS: LACTULOSE SYRUP 20 GM/30 ML UDC PO SCH ×3 (05:30→21:49)
[2020-06-19] MEDS: LEVOTHYROXINE SODIUM 25 MCG TABLET PO SCH (05:30)
[2020-06-19 07:10] LABS: ANION GAP 12.6 mmol/L (8-16); BLOOD UREA NITROGEN 29 mg/dL (7-26); BUN/CREATININE RATIO 32 (6-25); CALCIUM 7.4 mg/dL (8.4-10.2); CARBON DIOXIDE 23 mmol/L (22-29); CHLORIDE 114 mmol/L (98-107); CREATININE, SERUM 0.91 mg/dL (0.72-1.25); EST GLOMERULAR FILTRATION RATE > 60 ML/MIN (60-); GLUCOSE 204 mg/dL (74-118); POTASSIUM 3.6 mmol/L (3.5-5.1); SODIUM 146 mmol/L (136-145)
[2020-06-19] MEDS: FAMOTIDINE 20 MG TAB PO SCH ×2 (07:30→16:57)
[2020-06-19] MEDS: BALSAM PERU/CASTOR OIL 60 GM OINT...G. TP SCH (09:13)
[2020-06-19] MEDS: DEXTROSE 5% 1,000 ML IV SCH ×2 (12:00→19:24)
[2020-06-20] VITALS (8 sets, daily range): BP systolic 134–160; BP diastolic 66–76
[2020-06-20] MEDS: PIPER-TAZ 3.375 GM 50 ML IV SCH ×4 (04:00→22:04)
[2020-06-20] MEDS: DEXTROSE 5% 1,000 ML IV SCH (05:42)
[2020-06-20] MEDS: LACTULOSE SYRUP 20 GM/30 ML UDC PO SCH ×3 (05:42→22:04)
[2020-06-20] MEDS: LEVOTHYROXINE SODIUM 25 MCG TABLET PO SCH (05:42)
[2020-06-20] MEDS: FAMOTIDINE 20 MG TAB PO SCH ×2 (08:26→17:35)
[2020-06-20] MEDS: BALSAM PERU/CASTOR OIL 60 GM OINT...G. TP SCH (08:26)
[2020-06-20] MEDS: FUROSEMIDE 40 MG TAB PO SCH (08:26)
[2020-06-20 10:19] LABS: INR 2.01; PROTHROMBIN TIME 24.3 seconds (11.9-14.5)
[2020-06-21] VITALS (8 sets, daily range): BP systolic 125–167; BP diastolic 65–74
[2020-06-21] MEDS: PIPER-TAZ 3.375 GM 50 ML IV SCH ×4 (04:00→21:14)
[2020-06-21] MEDS: LACTULOSE SYRUP 20 GM/30 ML UDC PO SCH ×3 (05:53→21:14)
[2020-06-21] MEDS: LEVOTHYROXINE SODIUM 25 MCG TABLET PO SCH (05:53)
[2020-06-21 06:16] LABS: BASOPHILS # (AUTO) 0.1 (0.0-0.1); BASOPHILS % 0.5 % (0.0-1.0); EOSINOPHILS # (AUTO) 0.4 (0.0-0.4); EOSINOPHILS % 4.8 % (0.0-6.0); HEMATOCRIT 30.3 % (38.2-49.6); HEMOGLOBIN 10.1 g/dL (14.0-18.0); LYMPHOCYTES # (AUTO) 1.2 (1.0-3.2); MEAN CORPUSCULAR HEMOGLOBIN 34.5 pg (28-32); MEAN CORPUSCULAR HGB CONC 33.3 g/dL (31-35); MEAN CORPUSCULAR VOLUME 103.4 fL (81-99); MONOCYTES # (AUTO) 0.7 (0.2-0.8); MONOCYTES % 7.8 % (4.4-11.3); NEUTROPHILS # (AUTO) 6.6 (2.1-6.9); NEUTROPHILS % 72.1 % (38.7-80.0); PLATELET COUNT 75 x10e3/uL (140-360); RED BLOOD COUNT 2.93 x10e6/uL (4.3-5.7)
[2020-06-21 06:40] LABS: ANION GAP 11.7 mmol/L (8-16); BLOOD UREA NITROGEN 27 mg/dL (7-26); BUN/CREATININE RATIO 26 (6-25); CALCIUM 7.2 mg/dL (8.4-10.2); CARBON DIOXIDE 24 mmol/L (22-29); CHLORIDE 110 mmol/L (98-107); CREATININE, SERUM 1.02 mg/dL (0.72-1.25); EST GLOMERULAR FILTRATION RATE > 60 ML/MIN (60-); GLUCOSE 131 mg/dL (74-118); POTASSIUM 3.7 mmol/L (3.5-5.1); SODIUM 142 mmol/L (136-145)
[2020-06-21] MEDS: FUROSEMIDE 40 MG TAB PO SCH (08:30)
[2020-06-21] MEDS: FAMOTIDINE 20 MG TAB PO SCH ×2 (08:30→15:59)
[2020-06-21] MEDS: BALSAM PERU/CASTOR OIL 60 GM OINT...G. TP SCH (09:05)
[2020-06-21] MEDS ORDERED: B&O 60MG R/S 60 MG SUPP PR ONE (12:57)
[2020-06-21] MEDS ORDERED: BUPIVACAINE 0.25%/EPI 30ML SDV INJ ONE (12:57)
[2020-06-21] MEDS ORDERED: IOPAMIDOL 300MG/ML 50ML INFUS..BTL IV ONE (12:57)
[2020-06-21] MEDS ORDERED: SEVOFLURANE INHAL SOLN 250 ML PEN BTL ONE (13:21)
[2020-06-21] MEDS ORDERED: PROPOFOL IV EMULSION 10 MG/ML 20 ML VIAL ONE (13:21)
[2020-06-21] MEDS ORDERED: LIDOCAINE HCL 2% LOCAL INJ 5 ML SDV VIAL INJ ONE (13:21)
[2020-06-21] MEDS ORDERED: ONDANSETRON HCL INJ 2MG/ML 2ML 2 MG/ML VIAL ONE (13:21)
[2020-06-22] VITALS (9 sets, daily range): BP systolic 121–175; BP diastolic 65–86
[2020-06-22] MEDS: PIPER-TAZ 3.375 GM 50 ML IV SCH ×4 (03:47→21:00)
[2020-06-22] MEDS: LACTULOSE SYRUP 20 GM/30 ML UDC PO SCH ×3 (05:50→21:00)
[2020-06-22] MEDS: LEVOTHYROXINE SODIUM 25 MCG TABLET PO SCH (05:51)
[2020-06-22] MEDS: FUROSEMIDE 40 MG TAB PO SCH (09:26)
[2020-06-22] MEDS: BALSAM PERU/CASTOR OIL 60 GM OINT...G. TP SCH (09:26)
[2020-06-22] MEDS: FAMOTIDINE 20 MG TAB PO SCH ×2 (09:26→16:09)
[2020-06-22] MEDS ORDERED: NEOMYCIN/POLYMYXIN/BACITRACIN 15 GM TUBE TOP SCH (11:00)
[2020-06-22] MEDS: NEOMYCIN/POLYMYX/BACITR OINT 0.9 GM PKT TOP SCH ×2 (11:47→16:09)
[2020-06-22] MEDS: SPIRONOLACTONE 25 MG TAB PO SCH (16:09)
[2020-06-23] VITALS (8 sets, daily range): BP systolic 124–144; BP diastolic 61–76
[2020-06-23] MEDS: PIPER-TAZ 3.375 GM 50 ML IV SCH ×2 (04:00→11:43)
[2020-06-23] MEDS: LEVOTHYROXINE SODIUM 25 MCG TABLET PO SCH ×2 (05:24→07:59)
[2020-06-23] MEDS: LACTULOSE SYRUP 20 GM/30 ML UDC PO SCH ×3 (05:24→22:00)
[2020-06-23] MEDS: FAMOTIDINE 20 MG TAB PO SCH ×2 (07:30→16:30)
[2020-06-23] MEDS: FUROSEMIDE 40 MG TAB PO SCH (07:58)
[2020-06-23] MEDS: SPIRONOLACTONE 25 MG TAB PO SCH ×2 (07:58→16:30)
[2020-06-23] MEDS: BALSAM PERU/CASTOR OIL 60 GM OINT...G. TP SCH (09:57)
[2020-06-23] MEDS: NEOMYCIN/POLYMYX/BACITR OINT 0.9 GM PKT TOP SCH ×3 (09:57→21:00)
[2020-06-23] MEDS: LEVOFLOXACIN 500 MG TAB PO SCH (15:10)
[2020-06-24] VITALS: BP 140/72
[2020-06-24 04:00] VITALS: BP 130/71
[2020-06-24] MEDS: LACTULOSE SYRUP 20 GM/30 ML UDC PO SCH ×2 (06:00→14:51)
[2020-06-24 08:00] VITALS: BP 135/69
[2020-06-24] MEDS ORDERED: LACTULOSE20 GM/30 M PO (08:19)
[2020-06-24 08:58] VITALS: BP 135/69
[2020-06-24] MEDS: NEOMYCIN/POLYMYX/BACITR OINT 0.9 GM PKT TOP SCH (09:17)
[2020-06-24] MEDS: FAMOTIDINE 20 MG TAB PO SCH ×2 (09:17→16:59)
[2020-06-24] MEDS: FUROSEMIDE 40 MG TAB PO SCH (09:17)
[2020-06-24] MEDS: BALSAM PERU/CASTOR OIL 60 GM OINT...G. TP SCH (09:17)
[2020-06-24] MEDS: SPIRONOLACTONE 25 MG TAB PO SCH ×2 (09:17→16:59)
[2020-06-24 12:30] VITALS: BP 132/66
[2020-06-24] MEDS: LEVOFLOXACIN 500 MG TAB PO SCH (14:53)
[2020-06-24 16:00] VITALS: BP 141/73
== END 2020-06-24 18:25 | disposition hospice, inpatient (51) | DRG 871 ==
LOC: ER 07:10 → ERHOLD 07:59 → MED/SURG3 21:27
PROVIDERS: ADMIT Internal Medicine; ATTEND Internal Medicine
PROC: 0W9G3ZX Drainage of Peritoneal Cavity, Percutaneous Approach, Diagnostic (ICD-10-PCS; 2020-06-15)
PROC: 0W9G3ZZ Drainage of Peritoneal Cavity, Percutaneous Approach (ICD-10-PCS; 2020-06-17)
PROC: BT141ZZ Fluoroscopy of Kidneys, Ureters and Bladder using Low Osmolar Contrast (ICD-10-PCS; 2020-06-21)
PROC: 0T788ZZ Dilation of Bilateral Ureters, Via Natural or Artificial Opening Endoscopic (ICD-10-PCS; 2020-06-21)
PROC: 0T9B80Z Drainage of Bladder with Drainage Device, Via Natural or Artificial Opening Endoscopic (ICD-10-PCS; principal; 2020-06-21 14:30)
PROC: 0T9B30Z Drainage of Bladder with Drainage Device, Percutaneous Approach (ICD-10-PCS; 2020-06-21 14:30)
PROC: 0W9G3ZZ Drainage of Peritoneal Cavity, Percutaneous Approach (ICD-10-PCS; 2020-06-23)
DX: A40.9 Streptococcal sepsis, unspecified (principal); R65.21 Severe sepsis with septic shock; E43 Unspecified severe protein-calorie malnutrition; N17.9 Acute kidney failure, unspecified; D61.818 Other pancytopenia; N13.6 Pyonephrosis; K72.90 Hepatic failure, unspecified without coma; R31.9 Hematuria, unspecified; N40.1 Benign prostatic hyperplasia with lower urinary tract symptoms; R33.8 Other retention of urine; K70.31 Alcoholic cirrhosis of liver with ascites; F10.20 Alcohol dependence, uncomplicated; Z74.01 Bed confinement status; D69.6 Thrombocytopenia, unspecified; E83.51 Hypocalcemia; B95.2 Enterococcus as the cause of diseases classified elsewhere; B96.1 Klebsiella pneumoniae [K. pneumoniae] as the cause of diseases classified elsewhere; B96.89 Other specified bacterial agents as the cause of diseases classified elsewhere; Z68.26 Body mass index [BMI] 26.0-26.9, adult; Q54.8 Other hypospadias; N32.0 Bladder-neck obstruction; N18.30 Chronic kidney disease, stage 3 unspecified; Z20.822 Contact with and (suspected) exposure to COVID-19; I12.9 Hypertensive chronic kidney disease with stage 1 through stage 4 chronic kidney disease, or unspecified chronic kidney disease; I87.8 Other specified disorders of veins
CPT/HCPCS: 36415; 49083; 71045; 74176; 74420; 74470; 76770; 80048; 80053; 80202; 81001; 82140; 82550; 82553; 82570; 82607; 82746; 82948; 83605; 83735; 84100; 84300; 84443; 84484; 85025; 85610; 85730; 87040; 87070; 87071; 87086; 87186; 87205; 88112; 88305; 89051; 93306; 97139; 99251; 99285; C1758; J0692; J2001; J2405; J2543; J3370; J3480; J7030; J7050; J7060; J7070; J7121; U0002

== ENCOUNTER 2020-07-08 00:28 | Inpatient (IN) | payer MEDICARE ==
[~2020-07-08] VITALS: Ht 170.2 cm; Wt 57.2 kg
[~2020-07-08 00:28] MED LIST: FLOMAX0.4 MG PO; FUROSEMIDE40 MG PO; INSULIN ASPART; IPRAT-ALBUT 0.5-3 ML IH; LACTULOSE20 GM/30 M PO; LEVOTHYROXINE50 MCG PO; NEOMYCIN SULFA500 MG PO; SPIRONOLACTONE25 MG PO
[2020-07-08 01:01] LABS: BASOPHILS % 0.1 % (0.0-1.0); EOSINOPHILS % 0.2 % (0.0-6.0); HEMATOCRIT 32.3 % (38.2-49.6); HEMOGLOBIN 11.3 g/dL (14.0-18.0); LYMPHOCYTES # (AUTO) 0.5 (1.0-3.2); LYMPHOCYTES % 5.7 % (18.0-39.1); MEAN CORPUSCULAR HEMOGLOBIN 34.7 pg (28-32); MEAN CORPUSCULAR VOLUME 99.1 fL (81-99); MONOCYTES # (AUTO) 1.1 (0.2-0.8); NEUTROPHILS # (AUTO) 6.7 (2.1-6.9); NEUTROPHILS % 79.1 % (38.7-80.0); PLATELET COUNT 113 x10e3/uL (140-360); RED BLOOD COUNT 3.26 x10e6/uL (4.3-5.7); RED CELL DISTRIBUTION WIDTH 16.1 % (11.7-14.4)
[2020-07-08 01:22] LABS: CLARITY,URINE CLOUDY (CLEAR); COLOR,URINE YELLOW (YELLOW); KETONES,URINE NEGATIVE (NEGATIVE); LEUKOCYTE ESTERASE ,URINE MODERATE (NEGATIVE); NITRITE,URINE NEGATIVE (NEGATIVE); PROTEIN,URINE DIPSTICK >=300 (NEGATIVE); URINE UROBILINOGEN 0.2 mg/dL (0.2 - 1)
[2020-07-08 01:25] LABS: CREATINE KINASE MB 3.3 ng/mL (0-5.0)
[2020-07-08 01:27] LABS: ALBUMIN 1.5 g/dL (3.5-5.0); ALBUMIN/GLOBULIN RATIO 0.3 (0.8-2.0); ANION GAP 23.6 mmol/L (8-16); CALCIUM 7.6 mg/dL (8.4-10.2); CREATININE, SERUM 6.05 mg/dL (0.72-1.25)
[2020-07-08 01:28] LABS: POTASSIUM 5.6 mmol/L (3.5-5.1)
[2020-07-08] MEDS ORDERED: SODIUM CHLORIDE 0.9% 1000ML 1,000 ML IV ONE ×2 (01:30)
[2020-07-08] MEDS ORDERED: PIPER-TAZ 3.375 GM 50 ML IV ONE (01:30)
[2020-07-08] MEDS ORDERED: VANCOMYCIN 1GM/NS 250 ML 250 ML IV ONE (01:30)
[2020-07-08 01:33] LABS: BACTERIA,URINE MODERATE /HPF; EPITHELIAL CELLS,URINE FEW /LPF; RBC,URINE >50 /HPF (0-5); WBC,URINE (MAN) 21-50 /HPF (0-5)
[2020-07-08] MEDS ORDERED: SODIUM CHLORIDE 0.9% 50ML 50 ML ONE ×2 (01:36→01:55)
[2020-07-08] MEDS ORDERED: PIPERACILLIN/TAZOBAC 3.375 GM VIAL ONE (01:36)
[2020-07-08] MEDS ORDERED: PIPERACILLIN/TAZO 2.25 GM 50 ML IV ONE (01:45)
[2020-07-08] MEDS ORDERED: SODIUM CHLORIDE 0.9% 1000ML 2,000 ML IV ONE (01:45)
[2020-07-08] MEDS ORDERED: SODIUM CHLORIDE 0.9% 1000ML 1,000 ML IV SCH ×2 (01:45→14:30)
[2020-07-08] MEDS ORDERED: PIPERACILLIN/TAZOBACTAM SOD 2.25 GM VIAL ONE (01:55)
[2020-07-08] MEDS ORDERED: ONDANSETRON HCL INJ 2MG/ML 2ML 2 MG/ML VIAL IV PRN (02:45)
[2020-07-08 06:29] LABS: ANION GAP 21.5 mmol/L (8-16); CREATININE, SERUM 6.21 mg/dL (0.72-1.25); POTASSIUM 5.5 mmol/L (3.5-5.1)
[2020-07-08 06:41] LABS: CREATINE KINASE MB 6.4 ng/mL (0-5.0)
[2020-07-08 13:10] VITALS: BP 113/58
[2020-07-08 13:35] VITALS: BP 113/58
[2020-07-08 14:00] VITALS: BP 113/58
[2020-07-08] MEDS ORDERED: PEPCID20 MG PO (14:13)
[2020-07-08] MEDS ORDERED: DEPAKOTE ER250 MG PO (14:13)
[2020-07-08] MEDS ORDERED: VENELEX OINTMEN60 GM TOP (14:13)
[2020-07-08] MEDS ORDERED: TRIPLE ANTIBIOT28 GM TOP (14:13)
[2020-07-08] MEDS ORDERED: SOD POLYSTYRENE SULFONATE SUSP 15 GM/60 ML BTL PO ONE ×2 (15:15→16:30)
[2020-07-08] MEDS ORDERED: FUROSEMIDE INJ 10 MG/ML 2 ML VIAL IV ONE (15:15)
[2020-07-08] MEDS ORDERED: DEXTROSE 50% SYRINGE 50 ML IV STA (15:26)
[2020-07-08] MEDS ORDERED: INSULIN REGULAR, HUMAN 100 UNIT/1 ML 3ML VIAL IV ONE (15:30)
[2020-07-08] MEDS ORDERED: HYDROCORTISONE SOD SUCCINATE 100 MG VIAL IV ONE (15:30)
[2020-07-08 15:32] VITALS: BP 99/63
[2020-07-08] MEDS ORDERED: CALCIUM GLUCONATE 10% INJ 4.65 MEQ in SODIUM CHLORIDE 0.9% 50ML 50 ML IV ONE (16:00)
[2020-07-08] MEDS ORDERED: SODIUM CHLORIDE 0.9% 500ML 500 ML ONE (16:21)
[2020-07-08] MEDS ORDERED: LACTULOSE SYRUP 20 GM/30 ML UDC PO ONE (16:30)
[2020-07-08] MEDS: SODIUM BICARBONATE 8.4% SYRING 150 ML in STERILE WATER IV SOLN 1,000 ML IV SCH (18:00)
[2020-07-08 19:21] LABS: CREATINE KINASE MB 6.8 ng/mL (0-5.0)
[2020-07-08 20:00] VITALS: BP 105/62
[2020-07-08 21:00] VITALS: BP 105/62
[2020-07-09] VITALS (12 sets, daily range): BP systolic 87–110; BP diastolic 43–60
[2020-07-09 05:20] LABS: BASOPHILS % 0.2 % (0.0-1.0); HEMATOCRIT 32.7 % (38.2-49.6); HEMOGLOBIN 11.5 g/dL (14.0-18.0); LYMPHOCYTES # (AUTO) 0.5 (1.0-3.2); LYMPHOCYTES % 4.9 % (18.0-39.1); MEAN CORPUSCULAR HEMOGLOBIN 34.2 pg (28-32); MEAN CORPUSCULAR HGB CONC 35.2 g/dL (31-35); MEAN CORPUSCULAR VOLUME 97.3 fL (81-99); MONOCYTES # (AUTO) 0.7 (0.2-0.8); MONOCYTES % 7.2 % (4.4-11.3); NEUTROPHILS # (AUTO) 8.4 (2.1-6.9); NEUTROPHILS % 86.1 % (38.7-80.0); PLATELET COUNT 80 x10e3/uL (140-360); RED BLOOD COUNT 3.36 x10e6/uL (4.3-5.7); RED CELL DISTRIBUTION WIDTH 16.3 % (11.7-14.4)
[2020-07-09 06:04] LABS: ALBUMIN 1.5 g/dL (3.5-5.0); ALBUMIN/GLOBULIN RATIO 0.3 (0.8-2.0); ANION GAP 23.1 mmol/L (8-16); CALCIUM 7.5 mg/dL (8.4-10.2); CREATININE, SERUM 5.76 mg/dL (0.72-1.25); POTASSIUM 5.1 mmol/L (3.5-5.1)
[2020-07-09] MEDS: SODIUM BICARBONATE 8.4% SYRING 150 ML in STERILE WATER IV SOLN 1,000 ML IV SCH (09:25)
[2020-07-09] MEDS ORDERED: HEPARIN SOD (PORCINE) 1000 UNIT/ML SDV ONE (10:05)
[2020-07-09 10:42] LABS: INR 1.85; PROTHROMBIN TIME 22.8 seconds (11.9-14.5)
[2020-07-09] MEDS ORDERED: MIDAZOLAM HCL 2 MG/2 ML VIAL ONE (10:55)
[2020-07-09] MEDS ORDERED: FENTANYL CITRATE/PF 100MCG/2 ML INJ ONE (10:56)
[2020-07-09] MEDS ORDERED: CEFTRIAXONE SOD 1 GM VIAL ONE (11:30)
[2020-07-09] MEDS ORDERED: SODIUM CHLORIDE 0.9% 50ML 50 ML ONE (11:30)
[2020-07-09] MEDS ORDERED: LIDOCAINE HCL 1% LOCAL INJ 20 ML VIAL ONE (11:32)
[2020-07-09] MEDS ORDERED: SODIUM CHLORIDE 0.9% 500ML 500 ML ONE (11:57)
[2020-07-09] MEDS ORDERED: IOPAMIDOL 300 MG/ML 15ML VIAL IT ONE (12:12)
[2020-07-09] MEDS ORDERED: ALBUMIN 25% 12.5GM 0.25 GM/ML BTL IV PRN (14:00)
[2020-07-09] MEDS ORDERED: HEPARIN SOD (PORCINE) 1000 UNIT/ML SDV IV PRN (14:00)
[2020-07-09] MEDS ORDERED: SODIUM CHLORIDE 0.9% 1000ML 2,000 ML IV PRN (14:00)
[2020-07-09 14:12] LABS: OSMOLALITY,SERUM OSMOMETER 308 mOsmol/kg (280-301)
[2020-07-09] MEDS ORDERED: SODIUM CHLORIDE 0.9% 500ML 500 ML IV ONE ×2 (14:45→15:45)
[2020-07-09] MEDS: MEROPENEM 1GM 100 ML IV SCH (22:00)
[2020-07-10] VITALS (8 sets, daily range): BP systolic 83–110; BP diastolic 50–73
[2020-07-10] MEDS: SODIUM BICARBONATE 8.4% SYRING 150 ML in STERILE WATER IV SOLN 1,000 ML IV SCH ×3 (00:52→15:52)
[2020-07-10 05:18] LABS: BASOPHILS % 0.1 % (0.0-1.0); EOSINOPHILS % 0.3 % (0.0-6.0); HEMATOCRIT 28.8 % (38.2-49.6); HEMOGLOBIN 10.7 g/dL (14.0-18.0); LYMPHOCYTES # (AUTO) 0.7 (1.0-3.2); LYMPHOCYTES % 8.1 % (18.0-39.1); MEAN CORPUSCULAR HEMOGLOBIN 34.6 pg (28-32); MEAN CORPUSCULAR HGB CONC 37.2 g/dL (31-35); MEAN CORPUSCULAR VOLUME 93.2 fL (81-99); MONOCYTES # (AUTO) 1.7 (0.2-0.8); NEUTROPHILS # (AUTO) 6.3 (2.1-6.9); PLATELET COUNT 69 x10e3/uL (140-360); RED BLOOD COUNT 3.09 x10e6/uL (4.3-5.7); RED CELL DISTRIBUTION WIDTH 16.1 % (11.7-14.4)
[2020-07-10 05:57] LABS: ALBUMIN 1.3 g/dL (3.5-5.0); ALBUMIN/GLOBULIN RATIO 0.3 (0.8-2.0); CALCIUM 7.1 mg/dL (8.4-10.2); CREATININE, SERUM 4.71 mg/dL (0.72-1.25)
[2020-07-10] MEDS: BALSAM PERU/CASTOR OIL 60 GM OINT...G. TP SCH (09:00)
[2020-07-10] MEDS ORDERED: LORAZEPAM INJ 2 MG/ML VIAL IV PRN (20:15)
[2020-07-10] MEDS: HYDROMORPHONE 1MG/1ML INJ IV PRN (20:45)
[2020-07-10] MEDS: MEROPENEM 1GM 100 ML IV SCH (22:00)
[2020-07-11] VITALS (8 sets, daily range): BP systolic 91–106; BP diastolic 45–70
[2020-07-11] MEDS: SODIUM BICARBONATE 8.4% SYRING 150 ML in STERILE WATER IV SOLN 1,000 ML IV SCH ×2 (08:27→16:34)
[2020-07-11] MEDS: HYDROMORPHONE 1MG/1ML INJ IV PRN ×2 (08:29→20:45)
[2020-07-11] MEDS: BALSAM PERU/CASTOR OIL 60 GM OINT...G. TP SCH (09:00)
[2020-07-11] MEDS: MEROPENEM 1GM 100 ML IV SCH (22:00)
[2020-07-12] VITALS (7 sets, daily range): BP systolic 104–115; BP diastolic 50–59
[2020-07-12] MEDS: SODIUM BICARBONATE 8.4% SYRING 150 ML in STERILE WATER IV SOLN 1,000 ML IV SCH ×2 (04:04→15:34)
[2020-07-12] MEDS: BALSAM PERU/CASTOR OIL 60 GM OINT...G. TP SCH (09:00)
[2020-07-12] MEDS: FLUCONAZOLE 100 MG/NS 50 ML 50 ML IV SCH (14:00)
[2020-07-12] MEDS: MEROPENEM 1GM 100 ML IV SCH (22:00)
[2020-07-13] VITALS (8 sets, daily range): BP systolic 84–106; BP diastolic 39–58
[2020-07-13] MEDS: SODIUM BICARBONATE 8.4% SYRING 150 ML in STERILE WATER IV SOLN 1,000 ML IV SCH ×2 (03:04→14:34)
[2020-07-13] MEDS: BALSAM PERU/CASTOR OIL 60 GM OINT...G. TP SCH (09:00)
[2020-07-13] MEDS: FLUCONAZOLE 100 MG/NS 50 ML 50 ML IV SCH (14:00)
[2020-07-13] MEDS: MEROPENEM 1GM 100 ML IV SCH (22:00)
[2020-07-14] VITALS (7 sets, daily range): BP systolic 82–95; BP diastolic 45–53
[2020-07-14] MEDS: SODIUM BICARBONATE 8.4% SYRING 150 ML in STERILE WATER IV SOLN 1,000 ML IV SCH ×2 (02:04→09:20)
[2020-07-14] MEDS: BALSAM PERU/CASTOR OIL 60 GM OINT...G. TP SCH (07:15)
[2020-07-15 01:02] VITALS: BP 70/52
[2020-07-15] MEDS: SODIUM BICARBONATE 8.4% SYRING 150 ML in STERILE WATER IV SOLN 1,000 ML IV SCH ×2 (01:04→07:21)
[2020-07-15 05:05] VITALS: BP 76/42
[2020-07-15] MEDS: BALSAM PERU/CASTOR OIL 60 GM OINT...G. TP SCH (07:21)
[2020-07-15 08:00] VITALS: BP 78/38
[2020-07-15 08:56] VITALS: BP 78/38
== END 2020-07-15 11:11 | disposition hospice, home (50) | DRG 698 ==
LOC: ER 00:46 → ERHOLD 02:43 → MED/SURG2 12:46
PROC: 0T9B30Z Drainage of Bladder with Drainage Device, Percutaneous Approach (ICD-10-PCS; principal; 2020-07-09)
PROC: 02H633Z Insertion of Infusion Device into Right Atrium, Percutaneous Approach (ICD-10-PCS; 2020-07-09)
PROC: B548ZZA Ultrasonography of Superior Vena Cava, Guidance (ICD-10-PCS; 2020-07-09)
DX: T83.511A Infection and inflammatory reaction due to indwelling urethral catheter, initial encounter (principal); A41.9 Sepsis, unspecified organism; R65.21 Severe sepsis with septic shock; K76.7 Hepatorenal syndrome; K72.00 Acute and subacute hepatic failure without coma; N13.30 Unspecified hydronephrosis; E87.1 Hypo-osmolality and hyponatremia; E87.2 Acidosis; N17.9 Acute kidney failure, unspecified; N18.4 Chronic kidney disease, stage 4 (severe); R64 Cachexia; N39.0 Urinary tract infection, site not specified; E87.5 Hyperkalemia; K70.31 Alcoholic cirrhosis of liver with ascites; F10.20 Alcohol dependence, uncomplicated; Z66 Do not resuscitate; Q54.9 Hypospadias, unspecified; F41.9 Anxiety disorder, unspecified; I12.9 Hypertensive chronic kidney disease with stage 1 through stage 4 chronic kidney disease, or unspecified chronic kidney disease; Z68.23 Body mass index [BMI] 23.0-23.9, adult
CPT/HCPCS: 36415; 36556; 51102; 70450; 71045; 74178; 74470; 76770; 76937; 76942; 80048; 80053; 81001; 82140; 82550; 82553; 82565; 82948; 83605; 83930; 83935; 84484; 85025; 85610; 87040; 87086; 93005; 96361; 99251; 99284; C1752; C1769; J0610; J0696; J1170; J1450; J1644; J1720; J1817; J2001; J2250; J2543; J3010; J3370; J7030; J7040; J7799; Q9967; U0002